=== PATIENT | male | born 1950 | race Native Hawaiian/Other Pacific Islander ===

== ENCOUNTER 2017-03-15 13:07 | Observation (INO) | payer OTHER ==
[~2017-03-15] VITALS: Ht 185.4 cm; Wt 97.7 kg
[2017-03-15 13:24] VITALS: BP 186/92; TEMP 97.8
[2017-03-15] MEDS ORDERED: ALLO100T22 PO (13:46)
[2017-03-15] MEDS ORDERED: LISI5TAB10 PO (13:46)
[2017-03-15] MEDS ORDERED: SIMV10TA PO (13:46)
[2017-03-15] MEDS ORDERED: TAMS0.4C PO (13:47)
[2017-03-15] MEDS ORDERED: ADLT ASA LOW81 MG OR (13:47)
[2017-03-15] MEDS ORDERED: MULTIVITAMIN AD1 TAB PO (13:48)
[2017-03-15 14:16] LABS: PLATELET COUNT 190 K/uL (142-355)
[2017-03-15 14:24] LABS: POTASSIUM 3.6 mmol/L (3.6-5.2); SODIUM 134 mmol/L (136-145)
[2017-03-15 14:40] VITALS: BP 215/118
[2017-03-15 15:48] VITALS: BP 185/106
[2017-03-15 16:28] VITALS: BP 138/96
[2017-03-15 19:14] VITALS: BP 116/55; TEMP 98; Ht 185.4 cm; Wt 97.7 kg
[2017-03-15 20:00] VITALS: BP 109/58; TEMP 98.2
[2017-03-15] MEDS ORDERED: BISACODYL5 M1 PO (23:50)
[2017-03-15] MEDS ORDERED: MELATONIN10 M1 OR (23:52)
[2017-03-15] MEDS ORDERED: SILDENAFIL20 MG PO (23:54)
[2017-03-16] VITALS: BP 127/81; TEMP 98.2
[2017-03-16] MEDS ORDERED: HYZAAR1 TA2 PO (00:01)
[2017-03-16 04:00] VITALS: BP 145/88; TEMP 99.6
[2017-03-16 05:13] LABS: PLATELET COUNT 190 K/uL (142-355)
[2017-03-16 05:46] LABS: POTASSIUM 3.2 mmol/L (3.6-5.2); SODIUM 132 mmol/L (136-145)
[2017-03-16 08:00] VITALS: BP 137/85; TEMP 98.6
[2017-03-16 12:19] VITALS: BP 154/80; TEMP 98.9
[2017-03-16 16:23] VITALS: BP 138/85; TEMP 98.7
[2017-03-16 20:00] VITALS: BP 118/69; TEMP 99.3
[2017-03-17 00:05] VITALS: BP 133/85; TEMP 98.3
[2017-03-17 04:00] VITALS: BP 133/79; TEMP 98.7
[2017-03-17 06:31] LABS: PLATELET COUNT 203 K/uL (142-355)
[2017-03-17 06:36] LABS: POTASSIUM 3.8 mmol/L (3.6-5.2); SODIUM 133 mmol/L (136-145)
[2017-03-17 07:35] VITALS: BP 154/66; TEMP 98
--- NOTE | 2017-03-17 12:30 | NUR ---
DISCHARGE ORDERS RECEIVED, REVIEWED ALL PRESCRIPTIONS AND INSTRUCTIONS WITH PATIENT. IV REMOVED, TELEMETRY REMOVED.
--- NOTE | 2017-03-17 12:55 | NUR ---
PATIENT ESCORTED TO HOSPITAL EXIT VIA WHEELCHAIR AND DISCHARGED HOME IN STABLE CONDITION.
== END 2017-03-17 13:01 | disposition home or self-care (01) ==
LOC: ED 13:07 → MED/SURG 15:50
PROVIDERS: Emergency Medicine
DX: I16.0 Hypertensive urgency (principal); H83.09 Labyrinthitis, unspecified ear; R42 Dizziness and giddiness
CPT/HCPCS: 36415; 80048; 80053; 81000; 82550; 82553; 83735; 84484; 85027; 85610; 85730; 93005; 96367; 96372; 96374; 99220; 99284; G0378; J1650; J3490